=== PATIENT | male | born 1935 | race Caucasian/White ===

== ENCOUNTER 2018-06-14 17:21 | Inpatient (IN) | payer MEDICARE, MEDICAID ==
[~2018-06-14] VITALS: Ht 175.3 cm; Wt 70.8 kg
[~2018-06-14 17:21] MED LIST: ASPI-1 PO; FLO0.4C PO; HYDR-4353 PO; LEVO500T89 PO
[2018-06-14] MEDS ORDERED: LIDOcaine Viscous 15ml cup PO ONE ×2 (18:25→19:25)
[2018-06-14] MEDS ORDERED: mag hydrox/Alum hydrox/simeth 30ml oral suspension PO ONE ×2 (18:25→19:25)
[2018-06-14 18:33] LABS: PARTIAL THROMBOPLASTIN TIME 25 SECONDS (22-32)
[2018-06-14 18:37] LABS: ALANINE AMINOTRANSFERASE 32 U/L (12-78); ALBUMIN 3.5 G/DL (3.4-5.0); ALBUMIN/GLOBULIN RATIO 0.9 (1.1-1.5); ALKALINE PHOSPHATASE 62 IU/L (46-116); ANION GAP 8 (8-16); ASPARTATE AMINO TRANSFERASE 20 U/L (10-37); BILIRUBIN,TOTAL 0.4 MG/DL (0.1-1.0); BLOOD UREA NITROGEN 17 MG/DL (7-18); BUN/CREATININE RATIO 14.3 (5.4-32.0); CALCIUM 9.4 MG/DL (8.5-10.1); CHLORIDE 104 MMOL/L (99-107); CREATININE 1.19 MG/DL (0.60-1.10); GLUCOSE 79 MG/DL (70-104); POTASSIUM 3.6 MMOL/L (3.5-5.1); SODIUM 141 MMOL/L (135-145); TOTAL CARBON DIOXIDE 28.7 MMOL/L (24-32); TOTAL PROTEIN 7.6 G/DL (6.4-8.2); eGFR 59 ML/MIN
[2018-06-14 19:02] LABS: BASOPHILS % (AUTO) 0.4 % (0-1); EOSINOPHILS # (AUTO) 0.3 X10'3 (0-0.9); HEMATOCRIT 42.1 % (42.0-52.0); LYMPHOCYTES # (AUTO) 1.6 X10'3 (1.1-4.8); LYMPHOCYTES % (AUTO) 23.3 % (21-51); MEAN CORPUSCULAR HEMOGLOBIN 29.7 PG (27.0-31.0); MEAN CORPUSCULAR HGB CONC 33.3 % (33.0-36.5); MEAN CORPUSCULAR VOLUME 89.4 FL (78-98); MEAN PLATELET VOLUME 8.3 FL (7.4-10.4); MONOCYTES # (AUTO) 0.7 X10'3 (0-0.9); MONOCYTES % (AUTO) 10.4 % (2-12); NEUTROPHILS # (AUTO) 4.3 X10'3 (1.8-7.7); NEUTROPHILS % (AUTO) 60.9 % (42-75); PLATELET COUNT 208 X10'3 (140-440); RED BLOOD COUNT 4.71 X10'6 (4.70-6.10)
[2018-06-14] MEDS ORDERED: pantoprazole 40 MG vial IV ONE (19:25)
[2018-06-14] MEDS ORDERED: temazepam 15mg capsule PO PRN (21:00)
[2018-06-14] MEDS ORDERED: HYDROcodone/acetaminophen 5mg/325mg tablet PO PRN (21:45)
[2018-06-14] MEDS ORDERED: morphine 2 MG/ML inj. syringe IV PRN (21:45)
[2018-06-14] MEDS ORDERED: ondansetron/PF 4mg/2ml inj IV PRN (21:45)
[2018-06-14] MEDS ORDERED: diphenhydrAMINE 25mg capsule PO PRN (21:45)
[2018-06-14] MEDS ORDERED: diphenhydrAMINE 50 mg/ml inj IV PRN (21:45)
[2018-06-14] MEDS ORDERED: metoclopramide 5 mg/ml inj IV PRN (21:45)
[2018-06-14] MEDS ORDERED: mag hydrox/Alum hydrox/simeth 30ml oral suspension PO PRN (21:45)
[2018-06-14] MEDS ORDERED: HYDROmorphone 1 mg/ml syringe IV PRN (21:45)
[2018-06-14] MEDS ORDERED: acetaminophen 325mg tablet PO PRN ×2 (21:45)
[2018-06-14] MEDS ORDERED: magnesium hydroxide 30ml (MOM) UD suspension PO PRN (21:45)
[2018-06-14] MEDS ORDERED: bisacodyl 10mg suppository rectal RC PRN (21:45)
[2018-06-14] MEDS ORDERED: acetaminophen 650mg rectal suppository RC PRN (21:45)
[2018-06-14] MEDS: aspirin 81mg tab.chew PO SCH (21:45)
[2018-06-14] MEDS ORDERED: normal saline 1000ml 1,000 ML IVB ONE (21:47)
[2018-06-14 22:03] LABS: HEMOGLOBIN A1C 5.8 % (4.5-6.2)
[2018-06-14 22:11] LABS: MAGNESIUM 1.9 MG/DL (1.5-2.4); PHOSPHORUS 4.2 MG/DL (2.3-4.5)
[2018-06-14 22:18] LABS: PARTIAL THROMBOPLASTIN TIME 25 SECONDS (22-32)
[2018-06-14 22:20] LABS: CREATINE KINASE 82 U/L (39-308); LIPASE 269 U/L (73-393)
[2018-06-14] MEDS: normal saline 1000ml 1,000 ML IV SCH (22:20)
[2018-06-14 22:37] LABS: D-DIMER 0.24 MG/L FEU (0-0.50)
[2018-06-14 23:30] VITALS: BP 159/108
[2018-06-15 00:24] LABS: CLARITY,URINE CLEAR (Clear); COLOR,URINE YELLOW (Yellow); GLUCOSE, URINE NEGATIVE (Neg); KETONES,URINE NEGATIVE (Neg); LEUKOCYTE ESTERASE ,URINE NEGATIVE (Neg); NITRITES, URINE NEGATIVE (Neg); OCCULT BLOOD,URINE TRACE-INTACT (Neg); PH,URINE 6.5 (4.8-8.0); PROTEIN,URINE NEGATIVE (Neg); UROBILINOGEN,URINE 0.2 E.U/dL (0.2-1.0)
[2018-06-15 00:31] LABS: UA COLLECTION TYPE NON-SPECIFIED
[2018-06-15 00:36] LABS: BACTERIA,URINE FEW /HPF (Neg); RBC,URINE 0-2 /HPF (0-2); SQUAMOUS EPITHELIAL CELL,UR FEW /LPF (FEW); WBC,URINE 0-4 /HPF (0-4)
[2018-06-15 06:55] LABS: BASOPHILS % (AUTO) 0.5 % (0-1); EOSINOPHILS # (AUTO) 0.3 X10'3 (0-0.9); EOSINOPHILS % (AUTO) 5.3 % (0-6); HEMATOCRIT 39.4 % (42.0-52.0); LYMPHOCYTES # (AUTO) 2.1 X10'3 (1.1-4.8); LYMPHOCYTES % (AUTO) 32.1 % (21-51); MEAN CORPUSCULAR HEMOGLOBIN 29.6 PG (27.0-31.0); MEAN CORPUSCULAR HGB CONC 33.1 % (33.0-36.5); MEAN CORPUSCULAR VOLUME 89.5 FL (78-98); MEAN PLATELET VOLUME 8.9 FL (7.4-10.4); MONOCYTES # (AUTO) 0.7 X10'3 (0-0.9); MONOCYTES % (AUTO) 10.8 % (2-12); NEUTROPHILS # (AUTO) 3.4 X10'3 (1.8-7.7); NEUTROPHILS % (AUTO) 51.3 % (42-75); PLATELET COUNT 186 X10'3 (140-440); RED CELL DISTRIBUTION WIDTH 13.4 % (11.5-14.5); WHITE BLOOD COUNT 6.6 X10'3 (4.5-11.0)
[2018-06-15 07:00] VITALS: BP 147/81
[2018-06-15 07:20] LABS: ALANINE AMINOTRANSFERASE 25 U/L (12-78); ALBUMIN 2.8 G/DL (3.4-5.0); ALBUMIN/GLOBULIN RATIO 0.8 (1.1-1.5); ALKALINE PHOSPHATASE 44 IU/L (46-116); ANION GAP 6 (8-16); ASPARTATE AMINO TRANSFERASE 15 U/L (10-37); BILIRUBIN,TOTAL 0.3 MG/DL (0.1-1.0); BLOOD UREA NITROGEN 15 MG/DL (7-18); BUN/CREATININE RATIO 14.7 (5.4-32.0); CALCIUM 8.4 MG/DL (8.5-10.1); CHLORIDE 109 MMOL/L (99-107); CREATININE 1.02 MG/DL (0.60-1.10); GLUCOSE 99 MG/DL (70-104); POTASSIUM 3.9 MMOL/L (3.5-5.1); SODIUM 142 MMOL/L (135-145); TOTAL CARBON DIOXIDE 26.9 MMOL/L (24-32); TOTAL PROTEIN 6.2 G/DL (6.4-8.2); eGFR 70 ML/MIN
[2018-06-15 07:23] LABS: CHOL/HDL RATIO 2.9 (0.00-4.99); CHOLESTEROL 120 MG/DL (0-200); HDL CHOLESTEROL 41 MG/DL (35-60); LDL CHOLESTEROL 70 MG/DL (50-100); TRIGLYCERIDES 68 MG/DL (20-135)
[2018-06-15] MEDS: pantoprazole 40 MG vial IV SCH ×2 (07:48→19:08)
[2018-06-15] MEDS: docusate sod 100mg capsule PO SCH ×2 (07:49→19:08)
[2018-06-15] MEDS: aspirin 81mg tab.chew PO SCH (07:49)
[2018-06-15] MEDS: heparin, porcine 5000 units/ml vial SQ SCH ×2 (07:49→19:08)
[2018-06-15] MEDS: normal saline 1000ml 1,000 ML IV SCH ×2 (07:50→18:34)
[2018-06-15 11:00] VITALS: BP 129/86
[2018-06-15 19:00] VITALS: BP_SYST 118; BP_SYST 150; BP_DIAS 79; BP_DIAS 91
[2018-06-16] VITALS: BP_SYST 150; BP_SYST 158; BP_SYST 160; BP_DIAS 84; BP_DIAS 90; BP_DIAS 91
[2018-06-16] MEDS: normal saline 1000ml 1,000 ML IV SCH (04:16)
[2018-06-16 04:28] LABS: BASOPHILS % (AUTO) 0.5 % (0-1); EOSINOPHILS # (AUTO) 0.2 X10'3 (0-0.9); EOSINOPHILS % (AUTO) 2.6 % (0-6); HEMATOCRIT 42.2 % (42.0-52.0); HEMOGLOBIN 14.2 g/dl (14.0-17.9); LYMPHOCYTES # (AUTO) 1.2 X10'3 (1.1-4.8); MEAN CORPUSCULAR HEMOGLOBIN 29.9 PG (27.0-31.0); MEAN CORPUSCULAR HGB CONC 33.6 % (33.0-36.5); MEAN CORPUSCULAR VOLUME 89.1 FL (78-98); MEAN PLATELET VOLUME 9.1 FL (7.4-10.4); MONOCYTES # (AUTO) 0.8 X10'3 (0-0.9); MONOCYTES % (AUTO) 8.8 % (2-12); NEUTROPHILS # (AUTO) 6.9 X10'3 (1.8-7.7); NEUTROPHILS % (AUTO) 75.1 % (42-75); PLATELET COUNT 184 X10'3 (140-440); RED BLOOD COUNT 4.74 X10'6 (4.70-6.10); WHITE BLOOD COUNT 9.2 X10'3 (4.5-11.0)
[2018-06-16 04:35] LABS: ALANINE AMINOTRANSFERASE 28 U/L (12-78); ALBUMIN 2.9 G/DL (3.4-5.0); ALBUMIN/GLOBULIN RATIO 0.8 (1.1-1.5); ALKALINE PHOSPHATASE 52 IU/L (46-116); ANION GAP 10 (8-16); ASPARTATE AMINO TRANSFERASE 21 U/L (10-37); BILIRUBIN,TOTAL 0.7 MG/DL (0.1-1.0); BLOOD UREA NITROGEN 16 MG/DL (7-18); CALCIUM 8.2 MG/DL (8.5-10.1); CHLORIDE 107 MMOL/L (99-107); GLUCOSE 101 MG/DL (70-104); POTASSIUM 3.6 MMOL/L (3.5-5.1); SODIUM 140 MMOL/L (135-145); TOTAL CARBON DIOXIDE 23.4 MMOL/L (24-32); TOTAL PROTEIN 6.4 G/DL (6.4-8.2); eGFR > 90 ML/MIN
[2018-06-16 08:00] VITALS: BP 142/87
[2018-06-16] MEDS: pantoprazole 40 MG vial IV SCH (08:56)
[2018-06-16] MEDS: docusate sod 100mg capsule PO SCH (08:56)
[2018-06-16] MEDS: aspirin 81mg tab.chew PO SCH (08:56)
[2018-06-16] MEDS: heparin, porcine 5000 units/ml vial SQ SCH (08:57)
[2018-06-16 12:26] VITALS: BP 132/69
== END 2018-06-16 13:35 | disposition home or self-care (01) | DRG 312 ==
LOC: ER 21:56 → ED HOLD 22:51 → SUR 3N 23:22
PROVIDERS: ADMIT Family Medicine; ATTEND Family Medicine
DX: R55 Syncope and collapse (principal); R07.2 Precordial pain; I65.23 Occlusion and stenosis of bilateral carotid arteries; E86.1 Hypovolemia; I10 Essential (primary) hypertension; K21.9 Gastro-esophageal reflux disease without esophagitis; F03.90 Unspecified dementia, unspecified severity, without behavioral disturbance, psychotic disturbance, mood disturbance, and anxiety; R01.1 Cardiac murmur, unspecified; Z88.0 Allergy status to penicillin; Z79.899 Other long term (current) drug therapy; Z79.82 Long term (current) use of aspirin; Z79.2 Long term (current) use of antibiotics
CPT/HCPCS: 36415; 71045; 80053; 80061; 81001; 82550; 83036; 83690; 83735; 83880; 84100; 84443; 84484; 85025; 85379; 85610; 85730; 87070; 93005; 93306; 93880; 96374; 99285; C9113; G0378; J1644; J7030

== ENCOUNTER 2018-10-14 03:36 | Emergency (ER) | payer MEDICARE, MEDICAID ==
[~2018-10-14] VITALS: Ht 175.3 cm; Wt 65.0 kg
[~2018-10-14 03:36] MED LIST changes: -FLO0.4C PO; -HYDR-4353 PO; -LEVO500T89 PO; +PANT-47 PO
[2018-10-14] MEDS ORDERED: normal saline 1000ml 1,000 ML IV ONE (03:55)
[2018-10-14 04:19] LABS: BASOPHILS % (AUTO) 0.2 % (0-1); EOSINOPHILS # (AUTO) 0.1 X10'3 (0-0.9); EOSINOPHILS % (AUTO) 1.3 % (0-6); HEMATOCRIT 41.3 % (42.0-52.0); HEMOGLOBIN 14.1 g/dl (14.0-17.9); LYMPHOCYTES # (AUTO) 0.2 X10'3 (1.1-4.8); LYMPHOCYTES % (AUTO) 5.6 % (21-51); MEAN CORPUSCULAR HEMOGLOBIN 30.3 PG (27.0-31.0); MEAN CORPUSCULAR HGB CONC 34.2 g/dL (33.0-36.5); MEAN CORPUSCULAR VOLUME 88.8 FL (78-98); MEAN PLATELET VOLUME 8.2 FL (7.4-10.4); MONOCYTES % (AUTO) 0.7 % (2-12); NEUTROPHILS % (AUTO) 92.2 % (42-75); PLATELET COUNT 179 X10'3 (140-440); RED BLOOD COUNT 4.65 X10'6 (4.70-6.10); RED CELL DISTRIBUTION WIDTH 13.5 % (11.5-14.5); WHITE BLOOD COUNT 4.4 X10'3 (4.5-11.0)
[2018-10-14] MEDS ORDERED: ondansetron/PF 4mg/2ml inj IV ONE (04:20)
[2018-10-14] MEDS ORDERED: mag hydrox/Alum hydrox/simeth 30ml oral suspension PO ONE (04:20)
[2018-10-14] MEDS ORDERED: pantoprazole 40 MG vial IV ONE (04:20)
[2018-10-14] MEDS ORDERED: famotidine 20mg tablet PO ONE (04:20)
[2018-10-14 05:11] LABS: ALANINE AMINOTRANSFERASE 22 U/L (12-78); ALBUMIN 3.1 G/DL (3.4-5.0); ALBUMIN/GLOBULIN RATIO 0.9 (1.1-1.5); ALKALINE PHOSPHATASE 54 IU/L (46-116); ANION GAP 9 (8-16); ASPARTATE AMINO TRANSFERASE 18 U/L (10-37); BILIRUBIN,TOTAL 0.7 MG/DL (0.1-1.0); BLOOD UREA NITROGEN 17 MG/DL (7-18); BUN/CREATININE RATIO 14.2 (5.4-32.0); CALCIUM 9.7 MG/DL (8.5-10.1); CHLORIDE 106 MMOL/L (99-107); GLUCOSE 110 MG/DL (70-104); POTASSIUM 3.8 MMOL/L (3.5-5.1); SODIUM 143 MMOL/L (135-145); TOTAL CARBON DIOXIDE 28.1 MMOL/L (24-32); TOTAL PROTEIN 6.7 G/DL (6.4-8.2); eGFR 58 ML/MIN
[2018-10-14 05:13] VITALS: BP 120/52
[2018-10-14 05:19] LABS: LIPASE 158 U/L (73-393); MAGNESIUM 1.6 MG/DL (1.5-2.4)
== END 2018-10-14 05:54 | disposition home or self-care (01) ==
LOC: ER 03:37
DX: R11.2 Nausea with vomiting, unspecified (principal); I10 Essential (primary) hypertension; R07.9 Chest pain, unspecified; K21.9 Gastro-esophageal reflux disease without esophagitis; Z98.890 Other specified postprocedural states; Z88.0 Allergy status to penicillin; Z79.82 Long term (current) use of aspirin; Z79.899 Other long term (current) drug therapy
CPT/HCPCS: 36415; 71045; 80053; 83690; 83735; 83880; 84484; 85025; 93005; 96374; 96375; 99284; C9113; J2405

== ENCOUNTER 2018-12-21 17:59 | Observation (INO) | payer MEDICARE, MEDICAID ==
[~2018-12-21] VITALS: Ht 175.3 cm; Wt 70.3 kg
[2018-12-21] MEDS ORDERED: normal saline 1000ml 1,000 ML IV ONE (19:31)
[2018-12-21] MEDS ORDERED: ondansetron/PF 4mg/2ml inj IV ONE (19:35)
[2018-12-21 19:51] LABS: BASOPHILS # (AUTO) 0.1 X10'3 (0-0.2); BASOPHILS % (AUTO) 0.9 % (0-1); EOSINOPHILS # (AUTO) 0.3 X10'3 (0-0.9); EOSINOPHILS % (AUTO) 3.9 % (0-6); HEMATOCRIT 43.1 % (42.0-52.0); HEMOGLOBIN 14.6 g/dl (14.0-17.9); LYMPHOCYTES # (AUTO) 1.8 X10'3 (1.1-4.8); LYMPHOCYTES % (AUTO) 21.7 % (21-51); MEAN CORPUSCULAR HEMOGLOBIN 30.4 PG (27.0-31.0); MEAN CORPUSCULAR HGB CONC 33.8 g/dL (33.0-36.5); MEAN CORPUSCULAR VOLUME 89.9 FL (78-98); MEAN PLATELET VOLUME 9.3 FL (7.4-10.4); MONOCYTES # (AUTO) 1.1 X10'3 (0-0.9); MONOCYTES % (AUTO) 13.1 % (2-12); NEUTROPHILS # (AUTO) 4.9 X10'3 (1.8-7.7); NEUTROPHILS % (AUTO) 60.4 % (42-75); PLATELET COUNT 230 X10'3 (140-440); RED BLOOD COUNT 4.79 X10'6 (4.70-6.10); RED CELL DISTRIBUTION WIDTH 14.2 % (11.5-14.5); WHITE BLOOD COUNT 8.2 X10'3 (4.5-11.0)
[2018-12-21 19:56] LABS: ALANINE AMINOTRANSFERASE 284 U/L (12-78); ALBUMIN 3.3 G/DL (3.4-5.0); ALBUMIN/GLOBULIN RATIO 0.8 (1.1-1.5); ALKALINE PHOSPHATASE 317 IU/L (46-116); ANION GAP 4 (8-16); ASPARTATE AMINO TRANSFERASE 177 U/L (10-37); BILIRUBIN,TOTAL 1.1 MG/DL (0.1-1.0); BLOOD UREA NITROGEN 15 MG/DL (7-18); BUN/CREATININE RATIO 17.4 (5.4-32.0); CALCIUM 9.8 MG/DL (8.5-10.1); CHLORIDE 105 MMOL/L (99-107); CREATININE 0.86 MG/DL (0.60-1.10); GLUCOSE 101 MG/DL (70-104); LIPASE 250 U/L (73-393); MAGNESIUM 1.9 MG/DL (1.5-2.4); POTASSIUM 3.9 MMOL/L (3.5-5.1); SODIUM 139 MMOL/L (135-145); TOTAL CARBON DIOXIDE 30.4 MMOL/L (24-32); TOTAL PROTEIN 7.6 G/DL (6.4-8.2); eGFR 85 ML/MIN
[2018-12-21 20:12] LABS: CLARITY,URINE CLEAR (Clear); COLOR,URINE YELLOW (Yellow); GLUCOSE, URINE NEGATIVE (Neg); KETONES,URINE NEGATIVE (Neg); LEUKOCYTE ESTERASE ,URINE NEGATIVE (Neg); NITRITES, URINE NEGATIVE (Neg); OCCULT BLOOD,URINE TRACE-LYSED (Neg); PROTEIN,URINE NEGATIVE (Neg)
[2018-12-21 20:23] LABS: UA COLLECTION TYPE URINAL
[2018-12-21 20:30] LABS: BACTERIA,URINE FEW /HPF (Neg); RBC,URINE 0-2 /HPF (0-2); SQUAMOUS EPITHELIAL CELL,UR FEW /LPF (FEW); WBC,URINE NONE SEEN /HPF (0-4)
[2018-12-21] MEDS ORDERED: proCHLORperazine 10 MG/2 ml inj IV ONE (22:20)
[2018-12-21] MEDS ORDERED: normal saline 1000ml 1,000 ML IV SCH (22:28)
[2018-12-21] MEDS ORDERED: ondansetron/PF 4mg/2ml inj IV PRN (22:30)
[2018-12-21] MEDS ORDERED: potassium Cl 40MEQ/NS 500ml 500 ML IV PRN (22:30)
[2018-12-21] MEDS ORDERED: potassium CL 10mEq/100ml bag 100 ML IV PRN (22:30)
[2018-12-21] MEDS ORDERED: magnesium Cl slow-release 64mg tablet PO PRN (22:30)
[2018-12-21] MEDS ORDERED: potassium Cl 20 mEq SR tablet PO PRN ×2 (22:30)
[2018-12-21] MEDS ORDERED: magnesium hydroxide 30ml (MOM) UD suspension PO PRN (22:30)
[2018-12-21] MEDS ORDERED: magnesium 2GM in 50ml NS 50 ML IV PRN (22:30)
[2018-12-21] MEDS ORDERED: acetaminophen 325mg tablet PO PRN ×2 (22:30)
[2018-12-21] MEDS ORDERED: magnesium 4gm in 100ml NS 100 ML IV PRN (22:30)
[2018-12-21] MEDS ORDERED: mag hydrox/Alum hydrox/simeth 30ml oral suspension PO PRN (22:30)
--- NOTE | 2018-12-21 23:04 | NUR ---
Patient in room . I have received report from DINAH Rodriguez and had the opportunity to ask questions and assume patient care.
[2018-12-21 23:20] VITALS: BP 154/91
[2018-12-22] MEDS ORDERED: famotidine/PF 10 mg/ml inj IV ONE (00:05)
[2018-12-22] MEDS ORDERED: proCHLORperazine 10 MG/2 ml inj IV PRN (00:35)
[2018-12-22] MEDS ORDERED: HYDROcodone/acetaminophen 5mg/325mg tablet PO PRN (00:35)
[2018-12-22] MEDS: levoFLOXACIN-Levaquin 500mg/D5 100 ML IV SCH ×2 (00:54→08:27)
[2018-12-22 01:29] LABS: BASOPHILS % (AUTO) 0.5 % (0-1); EOSINOPHILS # (AUTO) 0.1 X10'3 (0-0.9); EOSINOPHILS % (AUTO) 0.8 % (0-6); HEMATOCRIT 43.5 % (42.0-52.0); HEMOGLOBIN 14.4 g/dl (14.0-17.9); LYMPHOCYTES # (AUTO) 0.4 X10'3 (1.1-4.8); LYMPHOCYTES % (AUTO) 4.4 % (21-51); MEAN CORPUSCULAR HEMOGLOBIN 29.9 PG (27.0-31.0); MEAN CORPUSCULAR HGB CONC 33.1 g/dL (33.0-36.5); MEAN CORPUSCULAR VOLUME 90.6 FL (78-98); MEAN PLATELET VOLUME 8.8 FL (7.4-10.4); MONOCYTES # (AUTO) 0.6 X10'3 (0-0.9); MONOCYTES % (AUTO) 6.3 % (2-12); NEUTROPHILS # (AUTO) 8.3 X10'3 (1.8-7.7); PLATELET COUNT 191 X10'3 (140-440); RED CELL DISTRIBUTION WIDTH 14.4 % (11.5-14.5); WHITE BLOOD COUNT 9.4 X10'3 (4.5-11.0)
[2018-12-22 01:38] LABS: ALANINE AMINOTRANSFERASE 284 U/L (12-78); ALBUMIN 3.2 G/DL (3.4-5.0); ALBUMIN/GLOBULIN RATIO 0.8 (1.1-1.5); ALKALINE PHOSPHATASE 308 IU/L (46-116); ANION GAP 7 (8-16); ASPARTATE AMINO TRANSFERASE 157 U/L (10-37); BILIRUBIN,TOTAL 1.2 MG/DL (0.1-1.0); BLOOD UREA NITROGEN 13 MG/DL (7-18); BUN/CREATININE RATIO 14.8 (5.4-32.0); CALCIUM 9.2 MG/DL (8.5-10.1); CHLORIDE 104 MMOL/L (99-107); CREATININE 0.88 MG/DL (0.60-1.10); GLUCOSE 103 MG/DL (70-104); POTASSIUM 3.5 MMOL/L (3.5-5.1); SODIUM 138 MMOL/L (135-145); TOTAL CARBON DIOXIDE 27.5 MMOL/L (24-32); TOTAL PROTEIN 7.3 G/DL (6.4-8.2); eGFR 83 ML/MIN
[2018-12-22 01:40] LABS: MAGNESIUM 1.6 MG/DL (1.5-2.4)
--- NOTE | 2018-12-22 06:09 | NUR ---
Problems reprioritized. Patient report given, questions answered & plan of care reviewed with DINAH Garcia.
[2018-12-22 07:00] VITALS: BP 96/58
[2018-12-22] MEDS ORDERED: pantoprazole 40mg Tablet.DR PO SCH (07:30)
[2018-12-22] MEDS ORDERED: K and/or MAG REPLACEMENT MC SCH (08:00)
[2018-12-22] MEDS ORDERED: aspirin 81mg tablet.DR PO SCH (08:00)
[2018-12-22] MEDS ORDERED: enoxaparin 40mg/0.4ml syringe SQ SCH (08:00)
[2018-12-22 11:00] VITALS: BP 111/69
[2018-12-22] MEDS ORDERED: PANT40TA4 PO (11:46)
[2018-12-22] MEDS ORDERED: LACT1CAP26 PO (11:46)
[2018-12-22] MEDS ORDERED: LEVO500T89 PO (11:46)
--- NOTE | 2018-12-22 12:02 | NUR ---
HOSPITALIST PUT A DISCHARGE IN AT 1138, BUT WANTS TO SEE IF HE TOLERATES HIS LUNCH FIRST.
--- NOTE | 2018-12-22 13:26 | NUR ---
PT DISCHARGED AND WAITING FOR TO COME GET HIM. CALLED SHE IS OFF AT 1600 AND WILL BE HERE THEN.
== END 2018-12-22 16:09 | disposition home or self-care (01) ==
LOC: ER 17:59 → SUR 3N 23:33
PROVIDERS: ADMIT Hospitalist; ATTEND Hospitalist
DX: R11.2 Nausea with vomiting, unspecified (principal); R19.7 Diarrhea, unspecified; R94.5 Abnormal results of liver function studies; I10 Essential (primary) hypertension; K21.9 Gastro-esophageal reflux disease without esophagitis; Z79.82 Long term (current) use of aspirin; Z87.19 Personal history of other diseases of the digestive system; Z88.0 Allergy status to penicillin
CPT/HCPCS: 36415; 71045; 74176; 76700; 80053; 81001; 83605; 83690; 83735; 84145; 84484; 85025; 87040; 87070; 93005; 96361; 96372; 96374; 96375; 96376; 99284; G0378; J0780; J1956; J2405; J3490; J7030; J1650

== ENCOUNTER 2019-06-17 05:03 | Day surgery (SDC) | payer MEDICARE, MEDICAID ==
[2019-06-12 09:54] LABS: BASOPHILS # (AUTO) 0.1 X10'3 (0-0.2); BASOPHILS % (AUTO) 1.1 % (0-1); EOSINOPHILS # (AUTO) 0.3 X10'3 (0-0.9); EOSINOPHILS % (AUTO) 5.1 % (0-6); HEMATOCRIT 45.2 % (42.0-52.0); HEMOGLOBIN 15.3 g/dl (14.0-17.9); LYMPHOCYTES # (AUTO) 1.8 X10'3 (1.1-4.8); LYMPHOCYTES % (AUTO) 27.7 % (21-51); MEAN CORPUSCULAR HEMOGLOBIN 30.7 PG (27.0-31.0); MEAN CORPUSCULAR HGB CONC 33.8 g/dL (33.0-36.5); MEAN CORPUSCULAR VOLUME 90.6 FL (78-98); MEAN PLATELET VOLUME 8.3 FL (7.4-10.4); MONOCYTES # (AUTO) 0.7 X10'3 (0-0.9); MONOCYTES % (AUTO) 10.3 % (2-12); NEUTROPHILS # (AUTO) 3.6 X10'3 (1.8-7.7); NEUTROPHILS % (AUTO) 55.8 % (42-75); PLATELET COUNT 205 X10'3 (140-440); RED BLOOD COUNT 4.99 X10'6 (4.70-6.10); RED CELL DISTRIBUTION WIDTH 13.3 % (11.5-14.5); WHITE BLOOD COUNT 6.4 X10'3 (4.5-11.0)
[2019-06-12 10:01] LABS: ALBUMIN 3.5 G/DL (3.4-5.0); ANION GAP 8 (8-16); BLOOD UREA NITROGEN 14 MG/DL (7-18); BUN/CREATININE RATIO 15.6 (5.4-32.0); CALCIUM 9.7 MG/DL (8.5-10.1); CHLORIDE 103 MMOL/L (99-107); GLUCOSE 110 MG/DL (70-104); POTASSIUM 4.2 MMOL/L (3.5-5.1); SODIUM 140 MMOL/L (135-145); eGFR 81 ML/MIN
[2019-06-12 10:03] LABS: PARTIAL THROMBOPLASTIN TIME 25 SECONDS (22-32)
[~2019-06-17] VITALS: Ht 175.3 cm; Wt 71.2 kg
[2019-06-17] VITALS (13 sets, daily range): BP systolic 128–169; BP diastolic 63–85
[~2019-06-17 05:03] MED LIST changes: +LACT1CAP26 PO; -PANT-47 PO; +PANT40TA4 PO
[2019-06-17] MEDS ORDERED: NITR0.4T51 SL (05:30)
[2019-06-17] MEDS ORDERED: ASPI-611 PO (05:30)
[2019-06-17] MEDS ORDERED: normal saline 1,000 ML IV SCH (05:35)
[2019-06-17] MEDS ORDERED: LORazepam 0.5 MG tablet PO PRN (05:35)
[2019-06-17] MEDS ORDERED: diphenhydrAMINE 25mg capsule PO PRN (05:35)
[2019-06-17] MEDS ORDERED: fentaNYL/PF 50MCG/1 ML 2ML syringe ONE (06:04)
[2019-06-17] MEDS ORDERED: midazolam 2 mg/2 ml injection ONE (06:04)
[2019-06-17] MEDS ORDERED: LIDOcaine 1% (10mg/ml)w/preservative injection 20ml MDV ONE (06:05)
[2019-06-17] MEDS ORDERED: iohexol 350MG/ML 100ml bottle IV ONE (06:05)
[2019-06-17] MEDS ORDERED: proCHLORperazine 10 MG/2 ml inj IV PRN (07:30)
[2019-06-17] MEDS ORDERED: ondansetron/PF 4mg/2ml inj IV PRN (07:30)
[2019-06-17] MEDS ORDERED: HYDROcodone/acetaminophen 10/325mg tab PO PRN (07:30)
[2019-06-17] MEDS ORDERED: acetaminophen 325mg tablet PO PRN (07:30)
[2019-06-17] MEDS ORDERED: HYDROcodone/acetaminophen 5mg/325mg tablet PO PRN (07:30)
[2019-06-17] MEDS ORDERED: OXAZEpam 15mg capsule PO PRN (07:30)
== END 2019-06-17 10:55 | disposition home or self-care (01) ==
LOC: SSTAY O 05:03
PROVIDERS: ATTEND Internal Medicine Interventional Cardiology
DX: I35.2 Nonrheumatic aortic (valve) stenosis with insufficiency (principal); I25.10 Atherosclerotic heart disease of native coronary artery without angina pectoris; E78.5 Hyperlipidemia, unspecified; I10 Essential (primary) hypertension; Z79.899 Other long term (current) drug therapy; Z79.82 Long term (current) use of aspirin; Z88.0 Allergy status to penicillin; Z79.01 Long term (current) use of anticoagulants
CPT/HCPCS: 36415; 80048; 85025; 85610; 85730; 93005; 93460; 99152; 99153; C1769; J1644; J2001; J2250; J3010; J7030; Q0163; Q9967; A4620; A6258